=== PATIENT | male | born 1985 | race American Indian/Alaskan Native ===

== ENCOUNTER 2019-05-13 09:42 | Emergency (ER) | payer MEDICAID ==
[~2019-05-13] VITALS: Ht 182.9 cm; Wt 84.1 kg
[2019-05-13] MEDS ORDERED: LITH600C PO (09:57)
[2019-05-13] MEDS ORDERED: NS 1,000 ML IV ONE (10:00)
[2019-05-13] MEDS ORDERED: ONDANSETRON 4MG/2ML VIAL (J2405) IV ONE (10:00)
[2019-05-13] MEDS ORDERED: OXAZEPAM 15 MG CAP PO ONE (10:15)
[2019-05-13 10:21] LABS: BASO # 0.1 10^3/uL (0.0-0.2); BASO % 0.6 % (0.0-1.0); EOS # 0.3 10^3/uL (0.0-0.5); EOS % 3.1 % (0.0-3.0); HEMATOCRIT 49.9 % (42.0-52.0); HEMOGLOBIN 16.6 g/dl (13.5-17.5); LYMPH # 1.1 10^3/uL (1.5-5.0); LYMPH % 10.5 % (24.0-44.0); MEAN CORPUSCULAR HEMOGLOBIN 29.9 pg (27.0-33.0); MEAN CORPUSCULAR HGB CONC 33.3 g/dl (32.0-36.5); MEAN CORPUSCULAR VOLUME 89.7 fl (80.0-96.0); MONO # 0.7 10^3/uL (0.0-0.8); MONO % 6.7 % (0.0-5.0); NEUTROPHILS # 8.4 10^3/uL (1.5-8.5); NEUTROPHILS % 78.8 % (36.0-66.0); PLATELET COUNT, AUTOMATED 309 10^3/uL (150-450); RED BLOOD COUNT 5.56 10^6/uL (4.30-6.10); WHITE BLOOD COUNT 10.7 10^3/uL (4.0-10.0)
[2019-05-13 10:32] LABS: INR 0.96; PROTHROMBIN TIME 12.5 SECONDS (11.8-14.0)
[2019-05-13 11:00] LABS: ALT/SGPT 22 U/L (12-78); BILIRUBIN,DIRECT 0.3 MG/DL (0.0-0.2); BILIRUBIN,TOTAL 0.9 MG/DL (0.2-1.0); BLOOD UREA NITROGEN 4 MG/DL (7-18); CARBON DIOXIDE LEVEL 30 MEQ/L (21-32); CHLORIDE LEVEL 103 MEQ/L (98-107); CREATININE FOR GFR 1.04 MG/DL (0.70-1.30); ETHYL ALCOHOL (ETHANOL) < 0.003 % (0.000-0.010); GLOMERULAR FILTRATION RATE > 60.0 (>60); GLUCOSE, FASTING 104 MG/DL (70-100); LIPASE 101 U/L (73-393); POTASSIUM SERUM 4.1 MEQ/L (3.5-5.1); SODIUM LEVEL 139 MEQ/L (136-145); TOTAL PROTEIN 7.8 GM/DL (6.4-8.2)
[2019-05-13] MEDS ORDERED: ONDA4TAB6 PO (12:30)
[2019-05-13 12:53] VITALS: BP 137/89
== END 2019-05-13 12:54 | disposition home or self-care (01) ==
LOC: M ED 09:42
DX: K52.9 Noninfective gastroenteritis and colitis, unspecified (principal); F10.230 Alcohol dependence with withdrawal, uncomplicated; F12.10 Cannabis abuse, uncomplicated; F17.210 Nicotine dependence, cigarettes, uncomplicated; Z79.899 Other long term (current) drug therapy
CPT/HCPCS: 80048; 80076; 83690; 85025; 85610; 96361; 96374; 99284; G0480; J2405

== ENCOUNTER 2019-06-22 15:47 | Emergency (ER) | payer MEDICAID ==
[~2019-06-22] VITALS: Ht 182.9 cm; Wt 78.1 kg
[~2019-06-22 15:47] MED LIST: LITH600C PO; ONDA4TAB6 PO
[2019-06-22 15:48] VITALS: BP 144/95
== END 2019-06-22 19:10 | disposition left against medical advice (07) ==
LOC: M ED 15:47
DX: Z53.21 Procedure and treatment not carried out due to patient leaving prior to being seen by health care provider (principal)

== ENCOUNTER 2019-06-26 11:26 | Emergency (ER) | payer OTHER ==
[~2019-06-26] VITALS: Ht 182.9 cm; Wt 77.7 kg
[2019-06-26] MEDS ORDERED: LITH300C PO ×4 (14:32→14:54)
[2019-06-26] MEDS ORDERED: TRAZ-189 PO (14:32)
[2019-06-26] MEDS ORDERED: MIRT1TAB16 PO ×2 (14:32→14:54)
[2019-06-26] MEDS ORDERED: OLAN15TA PO ×2 (14:32→14:54)
[2019-06-26] MEDS ORDERED: TRAZ-163 PO (14:54)
[2019-06-26 15:04] VITALS: BP 125/89
== END 2019-06-26 15:05 | disposition home or self-care (01) ==
LOC: M ED 11:26
DX: Z76.0 Encounter for issue of repeat prescription (principal); F33.9 Major depressive disorder, recurrent, unspecified; G47.00 Insomnia, unspecified; I10 Essential (primary) hypertension; F43.10 Post-traumatic stress disorder, unspecified; Z79.899 Other long term (current) drug therapy; F17.210 Nicotine dependence, cigarettes, uncomplicated

== ENCOUNTER 2019-07-13 10:48 | Emergency (ER) | payer OTHER ==
[~2019-07-13] VITALS: Ht 182.9 cm; Wt 77.7 kg
[~2019-07-13 10:48] MED LIST changes: +LITH300C PO; +MIRT1TAB16 PO; +OLAN15TA PO; +TRAZ-163 PO; +TRAZ-189 PO
[2019-07-13 10:49] VITALS: BP 143/87
[2019-07-13] MEDS ORDERED: LITH300T2 PO (11:44)
[2019-07-13] MEDS ORDERED: OLAN15TA PO (11:44)
[2019-07-13] MEDS ORDERED: TRAZ-163 PO (11:44)
[2019-07-13] MEDS ORDERED: MIRT1TAB16 PO (11:44)
== END 2019-07-13 12:02 | disposition home or self-care (01) ==
LOC: M ED 10:48
DX: Z76.0 Encounter for issue of repeat prescription (principal)